=== PATIENT | female | born 1950 | race Caucasian/White ===

== ENCOUNTER → 2016-04-18 | Outpatient (CLI) | payer MEDICARE ==
[~2016-04-18] MED LIST: CALC600T16 PO; CALCTAB11 PO; ESTROGEN BLOCKER PO; GLUCTAB6 PO; LETR2.5T PO; MAGN250T11 PO; MAGN250T5 PO; MAGN500T4 PO; OCUVTAB PO; PRESCAP6 PO; PYRI100T PO; SELE1TAB PO; VITA100018 PO; VITA10007 PO; VITA2000 PO; VITA200017 PO; VITA250T26 PO; VITA250T3 PO; VITA400C5 PO
[2016-04-18 09:48] LABS: HEMATOCRIT 40.1 % (35.0-46.0); MEAN CELL VOLUME 86.3 FL (80.0-100.0); MEAN CORPUSCULAR HEMOGLOBIN 29.4 PG (27.0-34.0); PLATELET COUNT 248 TH/MM3 (150-450); RED BLOOD COUNT 4.65 MIL/MM3 (4.00-5.30); RED CELL DISTRIBUTION WIDTH 13.8 % (11.6-17.2); REVIEW FLAG FINAL; WHITE BLOOD COUNT 5.5 TH/MM3 (4.0-11.0)
[2016-04-18 10:09] LABS: BICARBONATE 30.5 MEQ/L (21.0-32.0); POTASSIUM 4.6 MEQ/L (3.5-5.1)
--- NOTE | 2016-04-18 14:46 | EKG ---
Date Performed: 04/18/2016 Time Performed: 09:29:00 PTAGE: 65 years EKG: SINUS BRADYCARDIA BORDERLINE ECG NO PREVIOUS TRACING DOCTOR: Andrzej Ramsay Interpretating Date/Time 04/18/2016 14:40:14
== END ==
LOC: CPRE 09:03
PROVIDERS: ATTEND Plastic Surgery
DX: Z01.810 Encounter for preprocedural cardiovascular examination (principal); Z01.812 Encounter for preprocedural laboratory examination; C50.912 Malignant neoplasm of unspecified site of left female breast; R00.1 Bradycardia, unspecified
CPT/HCPCS: 36415; 80051; 85027; 93005

== ENCOUNTER → 2016-04-20 | Day surgery (SDC) | payer MEDICARE ==
--- NOTE | 2016-04-19 21:34 | TH ---
cc: MARGARETH MARTINEZ M.D. Corrected: 04/24/2016 DATE OF ADMISSION 04/20/2016 CHIEF COMPLAINT Status post left breast mastectomy and tissue graduate nurse reconstruction. Patient for second stage of the reconstruction. HISTORY OF THE PRESENT ILLNESS This is a 66-year-old white female who originally underwent left breast mastectomy sometime in September of 2015 with an immediate breast tissue graduate nurse placement and AlloMax reconstruction over the tissue expanders. She has done well since the surgery. Her tissue expansion has completed and the current volume is in the range of 650-700 mL that can be accommodated. She does have a saline breast implant on the right side. Her original augmentation was back in 2004 and the implant on the left side was removed by Dr. Martinez along with the mastectomy. The patient has had no radiation therapy. No further treatment since the mastectomy. The patient is approximately six to seven months post surgery and the expansion is completed and also the AlloMax should be integrating well. The flap is without any immediate problems. The original surgery has the inframammary crease incision as well. The patient underwent further explanation of the second stage surgery including showing the variety of implants, the different textures, different profiles, different shapes, round and teardrop and implants with normal silicone fill versus benitez volume was shown. The risks and complications were explained and discussed again. The patient understands the possibility of intraoperative and postoperative issues such as bleeding, seroma, hematoma, infection, etc. The possibility of implant rupture both saline and silicone were pointed out. The possibility of capsule formation, future screening of the implant by either mammogram or MRI was explained. The possible loss of reconstruction any time in immediate perioperative or long-term postoperative was also explained. The possible need for revision on the right side was also explained. The patient has gone back and forth between deciding for the final implants a few times and has finally settled on staying with the saline implant reconstruction. She understands the differences between the two, particularly that the saline implants will feel slightly more artificial to touch and there may be dimpling on the implant borders that cannot be covered by her currently thin mastectomy flaps. The patient wishes to stay with the saline implant and the expected volume is in the range of 500-600 possibly going slightly larger than 600, depending on the overall visual match with the opposite breast. PAST MEDICAL HISTORY The patient's past medical history is significant for the return of breast cancer. The patient is not diabetic. No hypertension or heart problems. No chronic collagen disorders, lymph node issues, skin conditions. PAST SURGICAL HISTORY 1. Her past surgeries include the breast augmentation a couple of times. 2. And the carpal tunnel. SOCIAL HISTORY Negative for smoking, alcohol or drug abuse. FAMILY HISTORY Significant for breast cancer in her mother. REVIEW OF SYSTEMS Is otherwise negative. MEDICATIONS Current medications none. ALLERGIES No allergies. PHYSICAL EXAMINATION GENERAL: The examination shows a 66-year-old white female with stable vital signs. The patient is alert, cooperative, fully oriented. Emotionally stable, fully ambulant and her recorded weight is approximately 160 pounds. She is 5 feet 8 inches tall. HEAD AND NECK: The examination shows clear sclerae. Equal pupils, reactive to room light. Trachea is midline. No thyroid or other masses noted in the neck. The neck movements are normal. No carotid artery thrills or bruits. LUNGS: Chest has good expansion with normal breath sounds. Normal heart sounds. No murmurs. EXTREMITIES: Extremities are grossly intact. ABDOMEN: The abdomen is soft, slightly protuberant. No obvious hernia. BREASTS: The breasts show right side augmented breast with saline implants, glandular tissue ptosis grade 3 and no other significant masses or nipple discharge. The left side shows the reconstructed tissue graduate nurse in place. The skin flaps are soft. They are approximately 3-4 mm thick. Surgical scars are well-healed. There is a slight tissue excess on the axillary side. The medial side is more even. The inframammary fold is slightly on the high side compared to the right. IMPRESSION The clinical impression is status post left mastectomy and tissue graduate nurse and AlloMax reconstruction. PLAN The plan is to remove the tissue graduate nurse, reshape the pocket internally and do the second stage breast reconstruction using saline, smooth, round, high profile implant. The patient's laboratory tests will be reviewed when available on the chart. signed, not fully reviewed MD TINY Eliazbeth/DESHAWN /8:52 PM /9:11 PM CELINE
[~2016-04-20] MED LIST changes: +ACETAMINOPHEN 325 MG TAB ONE; +APREPITANT 40 MG CAP ONE; +BACITRACIN IM FOR SOLN 50,000 UNIT VIAL ONE; -CALCTAB11 PO; +LACTATED RINGER'S 1,000 ML BAG IV ONE; +LACTATED RINGER'S 1000 ML INJ 1,000 ML ONE; +LIDOCAINE 1%/EPINEPHrine 1:100,000 SOLN 20 ML VIAL ONE; -MAGN250T5 PO; +MEPERIDINE HCL 25 MG/ML VIAL IV ONE; +MIDAZOLAM HCL 2 MG/2 ML VIAL ONE; +ONDANSETRON HCL 4 MG/2 ML VIAL IV PUSH ONE; -PRESCAP6 PO; +PROPOFOL 200 MG/20 ML AMP IV ONE; +SODIUM CHLORIDE 0.9% 20 ML VIAL ONE; -VITA200017 PO; +ceFAZolin INJ 1,000 MG VIAL ONE
--- NOTE | 2016-04-26 07:39 | MP ---
cc: MARGARETH SHARMA M.D. DATE OF SURGERY 04/20/2016 PREOPERATIVE DIAGNOSES Status post left mastectomy and tissue vacuum tester cans reconstruction. History of left breast cancer. POSTOPERATIVE DIAGNOSES Status post left mastectomy and tissue vacuum tester cans reconstruction. History of left breast cancer. OPERATION Removal of breast tissue vacuum tester cans, left breast reshaping and reconstruction with a saline, smooth round high-profile Allergan Natrelle implant. SURGEON Dr. Sharma ANESTHESIA General. INDICATIONS This is a 65-year-old white female who has undergone multiple previous surgeries including mastectomy, no chemotherapy, no radiation therapy, has tissue expansion in place. Tissue vacuum tester cans volume is 635 cc and she is overall doing well with the flap and the vacuum tester cans position. Also, originally she had saline breast implant augmentation. The right side still has a [address] The left side implant had been removed. The right may be 300 to 350 cc volume. Overall the patient underwent a detailed explanation of the reconstructive options for the second stage, the removal of the tissue vacuum tester cans, the reshaping of the medial upper aspect of the pocket closing the lateral aspect, adjusting the inframammary fold and possibly using an AlloMax graft as well was discussed. The patient was given opportunity to look at different implants. She changed her mind a couple of times, finally settling on saline smooth, round high profile implant. The patient understands the possible long-term issues with the implant with the flaps and the possibility of multiple surgeries, nipple reconstruction and surgery to make the right side look more symmetric were also explained. The patient is prepared to accept the possible risks and complications and is willing to go ahead. PROCEDURE The patient was brought to the operating room, was given supine position. Anesthesia was started. Prep and drape was done. IV antibiotic had been given. The preoperative markings were reinforced. Time-out had been called and completed. The horizontal lower pole incision which was slightly on the breast side of the inframammary fold was excised and discarded. The soft tissues were dissected and then the implant pocket was exposed. The AlloMax seems to be mostly integrated into the tissue, however, it was not very clearly seen inside the pocket. The flap was adequately covering her current implant. The tissue vacuum tester cans was drained with an incision and dissection and then it was carefully from the surrounding pocket. A small amount of fluid was noted in the pocket and a culture sample was taken. Also, it was noted that the tissue vacuum tester cans had become encased in a second internal fibrous capsule as well. The cavity was double-checked, did not seem to have any inflammation or fibrin stands or any other clear concerns. The lateral axillary pocket capsule was excised and then the lateral border was closed with running 0 Vicryl sutures with a few interrupted sutures in between to support the overall closure. The closure was rounded off on the lower outer quadrant into the inframammary fold. The inframammary fold was maintained mostly in its current position, slightly higher than the original position with deep inverting sutures to provide a sharper outline. The implant selected was Natrelle saline, smooth round 68 high-profile 600 cc implant, serial number [id number]. It was treated in antibiotic solution. All the air was irrigated out and then using antibiotic solution on the gloves and the implant entrance, it was carefully placed in the pocket with the filling side up. The entrance to the breast pocket was also repaired with 2-0 Vicryl interrupted sutures. The implant was filled with a three-way, no-touch technique using sterile saline solution, initially 600 cc were filled and the implant was adjusted during the fill. It appeared to have an excellent shape and position. The 2-0 Vicryl sutures were partially tied and the implant was reassessed one more time. An additional 30 cc was added to the volume for providing a slightly better line and the filling tube was pulled and the implant cap was locked. The remaining 2-0 Vicryl sutures were tied down. The rest of the closure was completed with 4-0 Vicryl and 4-0 Prolene sutures. No drain was necessary. The patient remained stable through the procedure. Intraoperative blood loss minimal. No complications. signed, not fully reviewed MD TINY Elizabeth/MATT /8:15 PM /6:59 AM CELINE
== END | disposition home or self-care (01) ==
LOC: ESDC 10:09
PROVIDERS: ATTEND Plastic Surgery
DX: Z42.1 Encounter for breast reconstruction following mastectomy (principal); C50.912 Malignant neoplasm of unspecified site of left female breast
CPT/HCPCS: 00400; 11970; 87070; 87102; 87205; 87206; C1789; J0690; J2175; J2250; J2405; J3010; J7120; J8501